=== PATIENT | male | born 1975 | race Caucasian/White ===

== ENCOUNTER 2020-11-10 08:45 | Emergency (ER) | payer MEDICAID ==
[~2020-11-10] VITALS: Ht 182.9 cm; Wt 70.3 kg
== END 2020-11-10 09:43 | disposition home or self-care (01) ==
LOC: ED 08:45
DX: R25.1 Tremor, unspecified (principal); F17.200 Nicotine dependence, unspecified, uncomplicated
CPT/HCPCS: 99283

== ENCOUNTER 2021-05-17 18:33 | Emergency (ER) | payer OTHER ==
[~2021-05-17] VITALS: Ht 182.9 cm; Wt 60.3 kg
--- NOTE | ~2021-05-17 | EKG ---
[facility] [address] [place], [place] [address] Draft EKG completed, results pending confirmation PATIENT NAME: MARJAN ROBLEDO Electrocardiogram DATE OF : 71 PHYSICIAN: PRELIMINARY REPORT #: [id number] REPORT IS CONFIDENTIAL AND NOT TO BE RELEASED WITHOUT AUTHORIZATION
--- OUTSIDE RECORDS SUMMARY | 2021-05-17 18:46 | XMS ---
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 - 2 Visits in 30 Days CARE PROVIDERS There are no care providers on record at this time. Bertha has no Care Guidelines for this patient. [place] [facility] (12 MO.) [facility] NOTE: Visits indicate total known visits. ED/C VISIT TRACKING (12 MO.) 05[facility]17/2021 18:[facility] COMPLAINT: - RT LEG PAIN 05/07/2021 14:44 [facility] DIAGNOSES: - Shortness of Breath - Pneumonia, unspecified organism 11/10/2020 08:47 [facility] TYPE: Emergency COMPLAINT: - BODY SHAKES DIAGNOSES: - Nicotine dependence, unspecified, uncomplicated - Tremor, unspecified INPATIENT VISIT TRACKING (12 MO.) 05/08/2021 04:59 [facility] TYPE: General Medicine DIAGNOSES: 33437. Other specified pleural conditions 72023. Hydropneumothorax 98794. Other specified pleural conditions 66097. Multiple fractures of ribs, bilateral, subsequent encounter for fracture with routine healing [email or web address]
--- NOTE | 2021-05-18 18:16 | EKG ---
[facility] [address] [place], [place] [address] Signed Sinus tachycardia Nonspecific T wave abnormality Abnormal ECG No previous ECGs available Confirmed by PAM DAWN DO ([id number]) on 05/18/2021 6:16:45 PM Electronically Signed By: PAM DAWN DO 05/18/21 181 PATIENT NAME: ROSALIEErickMARJAN Electrocardiogram DATE OF : 71 PHYSICIAN: PAM DAWN DO REPORT #: [id number] REPORT IS CONFIDENTIAL AND NOT TO BE RELEASED WITHOUT AUTHORIZATION
== END 2021-05-18 08:00 | disposition short-term general hospital (02) ==
LOC: ED 18:33
DX: S72.141A Displaced intertrochanteric fracture of right femur, initial encounter for closed fracture (principal); W17.89XA Other fall from one level to another, initial encounter; F17.200 Nicotine dependence, unspecified, uncomplicated; J86.9 Pyothorax without fistula; D72.829 Elevated white blood cell count, unspecified; Z20.822 Contact with and (suspected) exposure to COVID-19
CPT/HCPCS: 71045; 72170; 73552; 80053; 81001; 83605; 85025; 93005; 93010; 96365; 96367; 96375; 96376; 99285-25; C9803; J0295; J0696; J1170; J2405; J7030; J7121; U0003

== ENCOUNTER 2023-06-09 17:49 | Emergency (ER) | payer OTHER ==
[~2023-06-09] VITALS: Ht 182.9 cm; Wt 95.8 kg
[2023-06-09 18:34] VITALS: BP 134/81
== END 2023-06-09 18:33 | disposition home or self-care (01) ==
LOC: ED 17:49
DX: S61.211A Laceration without foreign body of left index finger without damage to nail, initial encounter (principal); F17.200 Nicotine dependence, unspecified, uncomplicated; W26.8XXA Contact with other sharp object(s), not elsewhere classified, initial encounter; Y93.E8 Activity, other personal hygiene
CPT/HCPCS: 99282